=== PATIENT | female | born 1985 | race Caucasian/White ===

== ENCOUNTER 2018-03-13 17:43 | Emergency (ER) | payer OTHER ==
[~2018-03-13] VITALS: Ht 177.8 cm; Wt 106.6 kg
[~2018-03-13 17:43] MED LIST: ATIVAN1 MG PO; CELEXA10 MG PO; CELEXA20 MG PO; CITALOPRAM HYDR10 MG; CITALOPRAM HYDR10 MG PO; DILAUDID2 MG PO; DOCUSATE SODIU100 MG PO; ENDOCET 325 MG-1 TA1 PO; FERROGELS FORT1 EACH PO; IBUPROFEN800 M1 PO; IBUPROFEN800 MG PO; LEVOTHYROXIN0.088 M1 PO; MASON NATURAL325 MG PO; PERCOCET 325 MG1 TA2 PO; PERCOCET 5-3251 EACH PO; PHENERGAN25 M1 PO; PRENATE MINI PO; PRILOSEC 20MG C20 MG PO; REGLAN10 MG PO
[2018-03-13 17:48] VITALS: BP 124/77
== END 2018-03-13 19:26 | disposition admitted as inpatient to this hospital (09) ==
LOC: ERH 17:43
DX: G43.909 Migraine, unspecified, not intractable, without status migrainosus (principal)
CPT/HCPCS: 81025